=== PATIENT | male | born 1965 | race Caucasian/White ===

== ENCOUNTER 2020-01-01 14:38 | Inpatient (IN) | payer BC ==
[~2020-01-01] VITALS: Ht 180.3 cm; Wt 124.7 kg
[2020-01-30] VITALS (13 sets, daily range): BP systolic 114–142; BP diastolic 58–76; PULSE 65–94; TEMP 98.1–99.2
[2020-01-30] MEDS ORDERED: LIPITOR 10MG10 MG PO (06:33)
[2020-01-30] MEDS ORDERED: TRICOR145 MG PO (06:33)
[2020-01-30] MEDS ORDERED: GLUCOPHAGE1000 MG PO (06:34)
[2020-01-30] MEDS ORDERED: BENICAR HCT 251 TAB PO (06:35)
[2020-01-30] MEDS ORDERED: LEXAPRO 10MG10 MG PO (06:35)
[2020-01-30] MEDS ORDERED: ASPIRIN 81M81 MG/TA2 PO (06:36)
[2020-01-30] MEDS ORDERED: THE MEDICINE S200 M2 PO (06:36)
[2020-01-30] MEDS ORDERED: OMEGA-3 1000 MG1 CAP PO (06:37)
[2020-01-30] MEDS ORDERED: TRULICITY1.5 MG/0.5 SQ (06:39)
--- NOTE | 2020-01-30 11:45 | NUR ---
Patient is back from surgery. Denies nausea. Stated having sharp pain to the drain site in right lower abdomen. Minimal drainage to MYRIAM drain. Peralta secured to leg, urine yellow and clear. Patient is alert and oriented. Oriented to room. Explained how call light works. No qustions verbalized. Vital signs stable. No other changes at this time. Call light within reach.
[2020-01-30 11:54] LABS: BASO % 0.3 % (0.0-2.0); EOS % 0.1 % (0-4.0); GRAN # 10.5 (1.4-6.5); GRAN % 89.1 % (42.2-75.2); HEMOGLOBIN 12.5 g/dl (13.5-18.0); LYMPH # 0.8 (1.2-3.4); LYMPH % 6.7 % (20.0-51.0); MEAN CELL VOLUME 91 fl (80.0-100.0); MEAN CORPUSCULAR HEMOGLOBIN 31 pg (27.0-31.0); MEAN CORPUSCULAR HGB CONC 34 g/dl (33.0-37.0); MEAN PLATELET VOLUME 10.6 fl (7.4-10.4); MONO # 0.4 (0.1-0.6); MONO % 3.1 % (1.7-9.3); PLATELET COUNT 225 K/mm3 (130-400); RED BLOOD COUNT 4.03 M/mm3 (4.20-5.60); REDCELL DISTRIBUTION WIDTH-CV 13.2 % (11.5-14.5)
[2020-01-30 11:56] LABS: HEMATOCRIT 36.5 % (42.0-52.0)
[2020-01-30 12:04] LABS: CALCIUM 8.6 mg/dL (8.4-10.2); CREATININE, serum 1.19 (0.66-1.25); POTASSIUM 4.7 mmol/L (3.4-5.0)
--- NOTE | 2020-01-30 14:36 | NUR ---
Utram given to patient at this time. He stated none of medications he had is helping the pain. He stated his pain at 4-6 on a 0-10 scale. Denies nausea. Patient is tolerating clear liquids. No other changes at this time. Call light within reach.
--- NOTE | 2020-01-30 14:38 | NUR ---
patient is alert and oriented. administered 0.09% NS at 75ml/hr gabapentin, acetaminophen and 2units of insulin. patient was informed to avoid carbonated drink and straw at the moment.
--- NOTE | 2020-01-30 18:30 | NUR ---
Patient has been doing well this afternoon. He is alert and oriented. Denies nausea. Continues to have sharp pain to RLQ. Patient is tolerating clear liquid diet. No other changes at this time. Call light within reach.
--- NOTE | 2020-01-30 22:32 | NUR ---
patient is doing well tonight. alert and oriented. c/o pain 8/10 to RLQ just above omi drain site. prn ultram given. discussed with patient pain control options and protocol, and patient was very distraught throughout this, will now given prn susan and ultram alternating to see if that will control pain. discussed with patient that he will most likely only be discharged on tylenol, patient said he would rather leave AMA tomorrow morning if his pain is not controlled. discussed with charge nurse who is aware of situation. kay is to dependent drainage, with clear yellow urine. x6 lap sites CDI with swiftset, omi drain has bloody output, dressing is clean. IVF infusing to R hand and will run throughout night. no further needs at this time. will continue to monitor.
[2020-01-31 03:47] VITALS: BP 134/65; PULSE 76; TEMP 98.2
[2020-01-31 06:20] LABS: BASO % 0.1 % (0.0-2.0); GRAN % 84.2 % (42.2-75.2); HEMOGLOBIN 11.7 g/dl (13.5-18.0); LYMPH # 0.8 (1.2-3.4); LYMPH % 5.5 % (20.0-51.0); MEAN CELL VOLUME 90 fl (80.0-100.0); MEAN CORPUSCULAR HEMOGLOBIN 30 pg (27.0-31.0); MEAN CORPUSCULAR HGB CONC 34 g/dl (33.0-37.0); MEAN PLATELET VOLUME 11.4 fl (7.4-10.4); MONO # 1.5 (0.1-0.6); MONO % 9.7 % (1.7-9.3); PLATELET COUNT 226 K/mm3 (130-400); RED BLOOD COUNT 3.86 M/mm3 (4.20-5.60); REDCELL DISTRIBUTION WIDTH-CV 13.4 % (11.5-14.5)
[2020-01-31 06:33] LABS: CALCIUM 8.3 mg/dL (8.4-10.2); POTASSIUM 4.3 mmol/L (3.4-5.0)
[2020-01-31 06:34] LABS: HEMATOCRIT 34.8 % (42.0-52.0)
[2020-01-31 07:18] VITALS: BP 129/58; PULSE 79; TEMP 98.5
--- NOTE | 2020-01-31 09:06 | NUR ---
Dr Roe here to see patient.
--- NOTE | 2020-01-31 09:08 | NUR ---
Peralta catheter removed per drs order at this time.
[2020-01-31 11:36] VITALS: BP 127/76; PULSE 72; TEMP 98.4
--- NOTE | 2020-01-31 11:44 | NUR ---
Manager Primary Care met with patient to discuss discharge planning. Patient lives in [place] with his , Luna (ph#[phone]) and sees Shannan Tim NP for primary care. Patient obtains medications from [facility] with no difficulties. Patient uses a bipap and no other DME. Patient is independent with ADLS and has been ambulating the hallways independently. Patient does not have Advance Directives but was interested in DPOA-HC form. SW provided. Patient plans to return home upon discharge. No additional needs at this time.
[2020-01-31 16:15] VITALS: BP 128/74; PULSE 74; TEMP 98.1
[2020-01-31 19:11] VITALS: BP 124/63; PULSE 69; TEMP 98.2
--- NOTE | 2020-01-31 22:00 | NUR ---
PATIENT DOING WELL TONIGHT. ALERT AND ORIENTED. X6 LAP SITES CDI WITH SWIFTSET. OLD MYRIAM DRAIN SITE CDI WITH GUAZE. C/O MILD PAIN / TO RLQ. DENIES ANY ADDITIONAL PAIN CONTROL AT THIS TIME. WBG WAS 188, NO INSULIN REQUIRED. TOOK SCHEDULED NEUROTIN WITHOUT ISSUE. STATES HE HAS PASSED A SMALL AMOUNT OF GAS. PATIENT CURRENTLY RESTING IN ROOM WITH BIPAP ON. CALL LIGHT WITHIN REACH. NO FURTHER NEEDS AT THIS TIME. WILL CONTINUE TO MONITOR.
[2020-02-01 00:56] VITALS: BP 141/67; PULSE 70; TEMP 98.4
[2020-02-01 05:09] VITALS: BP 150/66; PULSE 71; TEMP 98.6
--- NOTE | 2020-02-01 08:00 | NUR ---
PATIENT IS UP INDEPEDENTLY IN THE ROOM THIS MORNING. PATIENT IS A&OX4. VSS. BOWEL SOUNDS ACTIVE ALL FOUR QUADRANTS. PATIENT TOLERATING DIET WITHOUT COMPLAINTS OF N/V. ABDOMEN IS DISTENDED AND FIRM UPON PALPATIONS. PATIENT STATES THAT HE IS BELCHING AND PASSING GAS. ABDOMINAL LAP SITES X6 CHENG WITH EDGES WELL APPROXIMATED. RIGHT-SIDED ABDOMINAL MYRIAM DRAIN SITE COVERED WITH GAUZE AND TEGADERM AND IS CD&I. PATIENT STATES THAT HE HAS SOME TENDERNESS IN THE ABDOMEN, BUT THE PAIN IS TOLERABLE. CALL LIGHT WITHIN REACH. PATIENT DENIES ANY NEEDS AT THIS TIME.
[2020-02-01 08:55] VITALS: BP 134/64; PULSE 65; TEMP 97.9
--- NOTE | 2020-02-01 10:01 | NUR ---
PATIENT GIVEN PRN PO DOSE OF OXYCODONE PRIOR TO DISCHARGE. NO NEEDS AT THIS TIME.
--- NOTE | 2020-02-01 11:00 | NUR ---
DISCHARGE INSTRUCTIONS REVIEWED WITH PATIENT. QUESTIONS SOUGHT AND ANSWERED. PATIENT PERSONAL BELONGINGS GATHERED. PATIENT AMBULATED WITH SURGICAL STAFF TO PERSONAL VEHICLE. PATIENT DISCHARGED.
== END 2020-02-01 11:00 | disposition home or self-care (01) | DRG 661 ==
LOC: INPTSU 01-30 05:28 → SURG 01-30 07:30 → PEDS 01-30 11:21
PROVIDERS: ADMIT Urology
PROC: 8E0W4CZ Robotic Assisted Procedure of Trunk Region, Percutaneous Endoscopic Approach (ICD-10-PCS; 2020-01-30)
PROC: 0TB04ZZ Excision of Right Kidney, Percutaneous Endoscopic Approach (ICD-10-PCS; principal; 2020-01-30 07:30)
DX: N28.89 Other specified disorders of kidney and ureter (principal)
CPT/HCPCS: A4314; A9284; J0330; J1815; J2250; J2405; J2704; J3010; J7030